=== PATIENT | female | born 1985 | race Caucasian/White ===

== ENCOUNTER 2020-01-06 10:26 | Outpatient (CLI) | payer BC, SELFPAY ==
--- NOTE | ~2020-01-06 | MR_ITS ---
EXAMINATION: MR knee RT wo con DATE: 01/06/2020 11:41 INDICATION: Right knee injury and instability. TECHNIQUE: Magnetic resonance imaging (MRI) of the right knee was performed without intravenous contr ast. Sequences included axial PD-weighted FS FSE, coronal PD-weighted FSE and PD-weighted FS FSE, sag ittal PD-weighted FSE, and sagittal T2-weighted FS FSE. COMPARISON: Right knee radiographs 10/09/2014 FINDINGS: Medial compartment: Medial meniscus is normal. Medial compartment cartilage is normal. Lateral compartment: Lateral meniscus is normal. Lateral compartment cartilage is normal. Patellofemoral compartment: There is shallow partial-thickness cartilage loss of patellar median ridge and lateral facet. Trochle ar cartilage is normal. Ligaments and tendons: Anterior cruciate ligament is enlarged with increased signal, consistent with partial tear. Posterior cruciate ligament is intact. Medial collateral ligament and lateral collateral ligament complex are normal. There is mild patellar tendinopathy. Fluid: There is a moderate-sized knee joint effusion. Osseous/other: There is edema-like marrow signal intensity of lateral tibial condyle posteriorly, consistent with co ntusion. IMPRESSION: 1. Partial tear of anterior cruciate ligament. 2. Mild patellar chondrosis. 3. Moderate-sized knee joint effusion. Reviewed, dictated and finalized at location A.
== END 2020-01-06 10:27 | disposition home or self-care (01) ==
PROVIDERS: PCP Family Medicine; Visit Provider Nurse Practitioner Family
DX: S89.90XA Unspecified injury of unspecified lower leg, initial encounter (principal); X58.XXXA Exposure to other specified factors, initial encounter; M25.461 Effusion, right knee
CPT/HCPCS: 73721

== ENCOUNTER 2020-02-24 01:49 | Outpatient (CLI) | payer BC, SELFPAY ==
[2020-02-24 19:29] LABS: SARS-CoV-2 RNA PCR Negative
== END 2020-02-24 01:50 | disposition home or self-care (01) ==
LOC: ANHCOVIDDT 01:49
PROVIDERS: PCP Family Medicine; Visit Provider Orthopaedic Surgery
DX: R51 Headache (principal); J34.89 Other specified disorders of nose and nasal sinuses; Z20.828 Contact with and (suspected) exposure to other viral communicable diseases
CPT/HCPCS: 87635; C9803; U0003

== ENCOUNTER 2020-02-27 01:07 | Day surgery (SDC) | payer BC, SELFPAY ==
--- NOTE | 2020-02-26 09:15 | WPDANESEPP ---
Anes - Eval Pre Procedure Procedure: Operation Date: 02/27/20 07:30 Proposed Procedures p Right Anterior Cruciate Ligament Reconstruction - Esau Chang MD Date/Time: 02/26/20 09:15 Pre Op Diagnosis: Right ACL Tear Patient Data Age: 34 Gender: F Height: 1.65 m Weight: 54.43 kg Allergies Allergy/AdvReac Type Severity Reaction Status Date / Time No Known Allergies Allergy Verified 02/13/20 14:49 Home Medications Medication Instructions Recorded Confirmed Type Apple Cider Vinegar Gummy 2 ea PO DAILY 02/13/20 History Patient hx anesthesia problems: none Family hx anesthesia problems: none PMFSH Past Medical History Medical History Right ACL tear Surgical History Surgical History History of dilation and curettage (~2011) History of eye surgery (~2008) Family History Family History Father Family history of elevated blood lipids Heart disease Hypertension Malignant neoplasm of prostate Grandparent Colon cancer Social History Social History Smoking status: Never smoker Alcohol intake: current Drinks per week: 1 Spiritual care concerns: No Exam Day of Procedure 02/26/20 09:15
[2020-02-27] VITALS (9 sets, daily range): BP systolic 103–120; BP diastolic 68–86; PULSE 51–83; RESP 12–20; TEMP 36.8–37.4; O2SAT 96–100
--- NOTE | ~2020-02-27 | XR_ITS ---
EXAMINATION: XR knee RT 2V DATE: 02/27/2020 09:52 INDICATION: Right anterior cruciate ligament reconstruction. TECHNIQUE: AP and lateral views of the right knee were obtained. COMPARISON: 01/17/2020 FINDINGS: Bone alignment is normal. No fracture. Postoperative changes of likely patellar tendon autograft ACL reconstruction with fragments of bone along side the interference screws at the femoral and tibial tu nnels but without corresponding osseous defects at the patella or anterior tibial tubercle. Expected small amount of soft tissue and intra-articular gas. Joint spaces appear normal and nonweightbearing imaging. IMPRESSION: 1. Right ACL reconstruction, negative for postoperative purposes. Reviewed, dictated and finalized at location B.
[2020-02-27] MEDS: ACETAMINOPHEN 500 MG TABLET 1000 MG PO (06:34)
[2020-02-27] MEDS: LACTATED RINGERS 1,000 ML 30 ML IV CONT ×2 (06:40→09:31)
[2020-02-27] MEDS: KETOROLAC 15 MG/ML VIAL (*BKC) IV PUSH (06:52)
--- NOTE | 2020-02-27 07:09 | P.PNAN_ITS ---
Anes - Initial Pre Proc Eval Procedure: Operation Date: 02/27/20 07:30 Proposed Procedures p Right Anterior Cruciate Ligament Reconstruction - Esau Chang MD Date/Time: 02/27/20 07:09 Surgeon: Esau Chang MD Pre Op Diagnosis: Right ACL Tear Patient Data Age: 34 Gender: F Height: 5 ft 5 in Weight: 52.3 kg Last Vital Signs Temp 36.8 C 02/27/20 06:10 Pulse 71 02/27/20 06:10 Resp 20 02/27/20 06:10 BP 109/68 02/27/20 06:10 Pulse Ox 100 02/27/20 06:10 Allergies Allergy/AdvReac Type Severity Reaction Status Date / Time No Known Allergies Allergy Verified 02/27/20 06:35 Home Medications Medication Instructions Recorded Confirmed Type Apple Cider Vinegar Gummy 2 ea PO DAILY 02/13/20 02/27/20 History Patient hx anesthesia problems: none Family hx anesthesia problems: none PMFSH Past Medical History Medical History Right ACL tear Surgical History Surgical History History of dilation and curettage (~2011) History of eye surgery (~2008) Family History Family History Father Family history of elevated blood lipids Heart disease Hypertension Malignant neoplasm of prostate Grandparent Colon cancer Social History Social History Smoking status: Never smoker Alcohol intake: current Drinks per week: 1 Spiritual care concerns: No Anes - Eval Final PreProcedure Day of Procedure 02/27/20 07:09 Patient weight: normal Heart: regular rate and rhythm Lungs: clear to auscultation Airway: Mallampati scale class II Neurological: alert and oriented Last oral intake: >/= 8 hours ASA classification: I Emergent: no Anesthetic plan: proceed Anesthesia type and monitoring: general LMA and standard monitoring Informed Consent: The patient's anesthetic plan and its attendant risks and bene fits were discussed with the patient/family/POA. Questions were solicited and answers provided to the satisfaction of the patient/family/POA.
--- NOTE | 2020-02-27 07:12 | WPDHPUPDATE1 ---
History and Physical Update Update Date/Time: 02/27/20 07:12 History and Physical has been reviewed, including an updated exam of the patient. There are NO changes in the patient's condition. Risks, benefits, and alternatives have been discussed and questions answered. Patient agrees to proceed with procedure.
[2020-02-27] MEDS: ceFAZolin 2 GM/D5W 50 ML 2 GM/50 ML BAG IVPB (07:22)
[2020-02-27] MEDS: BUPIVACAINE/EPINEPHRINE 0.5% 30 ML VIAL 20 ML INFILTRATE (07:47)
--- NOTE | 2020-02-27 13:00 | PM.PROC ---
Procedure Note - Detailed Date of procedure: 02/27/20 Pre-op diagnosis: Right ACL Tear Post-op diagnosis: same Procedure performed: 1. Arthroscopic anterior cruciate ligament reconstruction with patellar tendon autograft. Implants: [place] interference screws. Titanium. 7 x 20 mm. 9 x 20 mm on the tibia. Anesthesia: GETA Surgeon: Esau Chang MD Estimated blood loss (mL): 50 Drains: No Complications: None Condition: stable Disposition: PACU Findings: The patient was given preoperative antibiotics prior to going to the operating room. A general anesthetic was administered. Examination under anesthesia was performed. The leg was prepped and draped in the usual sterile fashion after placing the leg in the arthroscopic leg castillo. Standard inferomedial, inferolateral and superior-medial arthroscopic portals were established. In flow was obtained with the saline pump. The residual ACL tissue was debrided with the arthroscopic shaver and the radioablation probe. Minimal notchplasty was performed as needed. The menisci were carefully inspected. The meniscal tissue was entirely normal. The medial, lateral and patellofemoral compartments appeared healthy without chondromalacia or damage. The allograft was defrosted and prepared on the back table. The tissue quality was very good. Approximately 25 mm x 10 mm grafts were taken. Attention was then turned back to the knee. The limb was exsanguinated and the tourniquet reinflated to 300 millimeters of mercury. The drill guide was placed at the [place] ACL footprint on the femur. An anatomic location was chosen, and confirmation of safe placement with the 7mm over the top guide. The flexible guide wire was drilled out of the lateral thigh anterior to midline. The flexible reamer was used to drill the tunnel for the femoral graft. A suture was placed through the pin and brought out through the thigh. The ACL guide was used at this time to drill a guide pin for the tibial tunnel. A separate small incision was utilized at the medial tibia. This was reamed with the strait reamer. The tibia guide was set at 60?. Typical anatomic landmarks were used for the tibial footprint. The lateral meniscus was utilized, and the location placed anatomically. The graft was then fed through the tibial tunnel into the femur. The graft was carefully positioned with the bone block anteriorly on the femur. A small notch was created to accept the screw. The nitinol wire was placed and the 7 x 20 millimeter interference screw was placed with excellent purchase. The graft was cycled. The tiba bone block was secured with the knee at 30? of flexion and slight posterior drawer was applied. The distal screw was placed similarly over the nitinol wire. An 9 x 20 millimeter titanium screw was used. Fixation was excellent. Care was taken to assure that there was no impingement of the graft. The arthroscopic instruments were removed. The tourniquet was released. The wounds were closed with interrupted 4-0 Monocryl suture followed by Steri-Strips. The deeper tissues on the tibia side were closed with 2-0 Vicryl suture. Sterile bulky dressing was applied with light compression. A knee immobilizer was placed. The patient was extubated and brought to the recovery room. There were no complications.
== END 2020-02-27 12:00 | disposition home or self-care (01) ==
PROVIDERS: PCP Family Medicine; Visit Provider Orthopaedic Surgery
PROC: (CPT 29888; principal; 2020-02-27 07:30)
DX: S83.511A Sprain of anterior cruciate ligament of right knee, initial encounter (principal); X58.XXXA Exposure to other specified factors, initial encounter; Y93.9 Activity, unspecified; Y92.9 Unspecified place or not applicable; Y99.9 Unspecified external cause status
CPT/HCPCS: 29888; 73560; A9270; C1713; J0690; J1100; J1200; J1885; J2250; J2405; J2704; J3010; J7120; L1830

== ENCOUNTER 2021-12-29 10:13 | Emergency (ER) | payer BC, SELFPAY ==
[2021-12-29 10:22] VITALS: BP 109/83; PULSE 82; RESP 16; TEMP 37.1; O2SAT 100
--- NOTE | 2021-12-29 10:41 | ED.UPPEXIN ---
HPI - Extremity Injury (Upper) General Chief Complaint: Upper Respiratory Infection Stated Complaint: Sore Throat,Headache History of Present Illness HPI narrative: Maris Echeverria is a 36 yo female with no PMH who comes to the [facility] care with sore throat and headache with some congestion. Her headache is gone today her throat is better after using ibuprofen. She was exposed on Wednesday to and play who became COVID-positive on and Wednesday started developing scratchy throat and sinus condition Related Data Home Medications Medication Instructions Recorded Confirmed levonorgestrel 20 mcg/24 hours (7 1 device intrauterine ONCE 12/29/21 12/29/21 yrs) 52 mg intrauterine device (Mirena) Allergies Allergy/AdvReac Type Severity Reaction Status Date / Time No Known Allergies Allergy Verified 12/29/21 10:32 Review of Systems Review of Systems: CONSTITUTIONAL: Denies fever, chills, sweats. EYES: Denies visual changes, redness, discharge. ENT: Denies rhinorrhea, has congestion, has sore throat, otalgia. CARDIOVASCULAR: Denies chest pain, palpitations, edema. RESPIRATORY: Denies dyspnea, wheezing, cough GASTROINTESTINAL: Denies abdominal pain, nausea, vomiting, diarrhea. GENITOURINARY: Denies dysuria, hematuria, abnormal discharge SKIN: Denies rash or itching. NEUROLOGIC: Denies numbness, or focal weakness. PSYCHIATRIC: Denies anxiety or depression. [facility] Past Medical History Medical History (Updated 12/29/21 @ 10:56 by Karly Alex CNP) Right ACL tear Surgical History Surgical History History of dilation and curettage (~2011) History of eye surgery (~2008) Hx of anterior cruciate ligament tear reconstruction (~02/27/20) Rt Knee Family History Family History Father Family history of elevated blood lipids Heart disease Hypertension Malignant neoplasm of prostate Grandparent Colon cancer Mother No problems noted. Sibling Thyroid activity decreased Social History Social History Second hand tobacco smoke exposure: No Alcohol intake: current Drinks per week: 1 Substance use: never Substance use type: does not use Additional occupation/education comments: CRITICAL CARE RN Gender identity (if verbalized by the patient): Female Spiritual care concerns: No Comments At time of signature, I agree with nursing past medical, surgical, social and family history. There is no relevant family history pertinent to the presenting complaint. Exam Narrative: GENERAL: This is a well-nourished, well-developed patient, in mild distress. HEAD: normocephalic, atraumatic. EYES: Sclera clear/white. Vision is grossly intact. EARS: External ears normal, auditory canals erythema and without drainage, TMs normal without perforation. Hearing grossly intact. NOSE: External nose normal without nasal discharge, nares without redness, no rhinorrhea. THROAT: Mucous membranes moist, posterior pharynx erythema with clear exudate NECK: Neck supple, non-tender CARDIOVASCULAR: Regular rate and rhythm without murmurs, gallops, or rubs. RESPIRATORY: Clear to auscultation. Breath sounds equal bilaterally. No wheezes, rales, or rhonchi. GASTROINTESTINAL: Not done SKIN: warm, intact with no suspicious lesions or rash, good texture and turgor. NEURO: awake, alert, and oriented to person, place and time. There were no obvious focal neurologic abnormalities. Steady gait EXTREMITIES: Normal range of motion. BACK: Nontender without deformity Course Course Emergency Course: Patient here for sore throat headache and sinus complaints after being exposed to someone with COVID on Wednesday developed sore throat Wednesday with fatigue Strep test negative COVID test negative Flu is negative Offered steroids and Tessalon Perles-patient will continue to
== END 2021-12-29 11:02 | disposition home or self-care (01) ==
PROVIDERS: Emergency Provider Nurse Practitioner; PCP Family Medicine
DX: J02.9 Acute pharyngitis, unspecified (principal); Z20.822 Contact with and (suspected) exposure to COVID-19
CPT/HCPCS: 87081; 87426; 87804; 87880; 99213; C9803; G0463

== ENCOUNTER 2022-09-04 17:19 | Emergency (ER) | payer BC, SELFPAY ==
[2022-09-04 17:29] VITALS: BP 111/81; PULSE 79; RESP 16; TEMP 36.2; O2SAT 100
--- NOTE | 2022-09-04 18:01 | ED.WOUNDLAC ---
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 Patient has 1.5 cm laceration linear with minimal depth noted on edges of wound, bleeding is controlled at present time. Patient reports that her tetanus shot is up to date. Onset (ago): hour(s) (1 hour) Location: other (right cruz thumb region) Patient tetanus UTD: Yes Treatments prior to arrival: other (washed with soap and water) Related Data Home Medications Medication Instructions Recorded Confirmed levonorgestrel 21 mcg/24 hours (8 1 device intrauterine ONCE 12/29/21 09/04/22 yrs) 52 mg intrauterine device (Mirena) Allergies Allergy/AdvReac Type Severity Reaction Status Date / Time No Known Allergies Allergy Verified 09/04/22 17:49 Review of Systems Review of Systems: CONSTITUTIONAL: Denies fever, chills, or sweats. CARDIOVASCULAR: Denies chest pain, palpitations, or edema. RESPIRATORY: Denies cough or dyspnea. 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 All systems reviewed & are unremarkable except as noted in HPI and below PMFSH Past Medical History Medical History (Updated 09/06/22 @ 12:46 by Rain Elam NP) BMI between 19-24,adult Right ACL tear UTI (urinary tract infection) Surgical History Surgical History History of dilation and curettage (~2011) History of eye surgery (~2008) Hx of anterior cruciate ligament tear reconstruction (~02/27/20) Rt Knee Family History Family History Father Family history of elevated blood lipids Heart disease Hypertension Malignant neoplasm of prostate Grandparent Colon cancer Mother No problems noted. Sibling Thyroid activity decreased Social History Social History Smoking status: Never smoker Tobacco type: cigarettes Second hand tobacco smoke exposure: No Alcohol intake: current Drinks per week: 1 Substance use: never Substance use type: does not use Lack of Transportation: No Lack of Food: Never True Current Housing: I Have Housing Concerned About Future Housing: No Difficulty Paying Gas/Electric Bills: No Difficulty Paying for Meds: No Currently Unemployed: No Education: Master's Degree or Higher Difficulty w/ Childcare or Family Care: No Living arrangements: with family Occupation/Education: occupation Additional occupation/education comments: [employer] Gender identity (if verbalized by the patient): Female Spiritual care concerns: No Comments At time of signature, agree with nursing past medical, surgical, social and family history. There is no relevant family history pertinent to the presenting complaint Exam Narrative: GENERAL: Well-appearing, well-nourished, and in no acute distress. HEAD: Normocephalic, atraumatic. NECK: Supple.no lymphadenopathy CHEST: Clear to auscultation. No respiratory distress.SAO2 100% on room air HEART: Regular rate and rhythm. No murmur heard. Normal peripheral pulses. EXTREMITIES: Normal range of motion. No edema. SKIN: Warm, dry, no rash. Reports laceration to the cruz aspect of her right base of thumb which occurred when she was cleaning her blende, 1.5 cm linear with edges of wound with minimal depth.Patient has no tingling or numbnes to he
== END 2022-09-04 18:50 | disposition home or self-care (01) ==
PROVIDERS: Emergency Provider Registered Nurse; PCP Family Medicine
DX: S61.011A Laceration without foreign body of right thumb without damage to nail, initial encounter (principal); W26.8XXA Contact with other sharp object(s), not elsewhere classified, initial encounter
CPT/HCPCS: 12001; 99213; G0463

== ENCOUNTER → 2023-05-11 09:52 | Outpatient (CLI) | payer BC, SELFPAY ==
--- NOTE | ~2023-05-11 | XR_ITS ---
XR chest 2V DATE: 05/11/2023 10:15 INDICATION: Acute bronchitis TECHNIQUE: 2 views COMPARISON: None FINDINGS: Normal heart size. No hilar or mediastinal enlargement. Bilateral hyperinflation. No pleural effusion or pulmonary vascular congestion or pneumothorax. Included skeletal structures are unremarkable. IMPRESSION: Bilateral hyperinflation Reviewed, dictated and finalized at location L. SET OPERATOR IMPRESSION: Bilateral hyperinflation
== END ==
PROVIDERS: PCP Family Medicine; Visit Provider Physician Assistant Medical
DX: R91.8 Other nonspecific abnormal finding of lung field (principal); J20.9 Acute bronchitis, unspecified
CPT/HCPCS: 71046